=== PATIENT | male | born 1960 | race American Indian/Alaskan Native ===

== ENCOUNTER 2019-07-02 02:33 | Emergency (ER) | payer SELFPAY ==
[2019-07-02] MEDS ORDERED: predniSONE 20 MG TAB PO ONE ×2 (03:25→03:26)
[2019-07-02] MEDS ORDERED: IPRATROPIUM 0.02% NEBU 2.5 ML IH ONE (03:26)
[2019-07-02] MEDS ORDERED: ALBUTEROL 2.5 MG/3 ML NEBU IH ONE (03:26)
--- NOTE | 2019-07-02 03:30 | Emergency Department Report ---
ED Shortness of Breath HPI - General Stated Complaint: SANGEETA Time Seen by Provider: 07/02/19 03:17 Source: patient Mode of arrival: Stretcher Limitations: No Limitations - History of Present Illness Initial Comments: Mr. Medina is a 59-year-old male with history of hypertension COPD polysubstance abuse who presents with shortness of breath since this evening. He was recently seen outside hospital. He does not recall the name of the prescriptions he was given. He has nonproductive cough. Denies fever. Denies chest pain. Severe shortness of breath. Arrived per EMS. Previously followed at [facility]. Recently moved to [facility] to live with granddaughter. Positive history of tobacco abuse, cocaine abuse and marijuana use. He was informed that he may have a bad heart from cocaine use. MD Complaint: shortness of breath, cough -: Gradual, This evening Severity: severe Consistency: constant Improves With: nothing Worsens With: lying flat, exertion Known History Of: COPD Context: recent illness Associated Symptoms: denies other symptoms - Related Data Previous Rx's Medication Instructions Recorded Last Taken Type ALBUTEROL Inhaler (OR & NICU) 2 puff IH QID PRN #8.5 gram 07/02/19 Unknown Rx [ProAir HFA Inhaler] DOXYCYCLINE Hyclate [Vibramycin 100 mg PO Q12HR 7 Days #14 capsule 07/02/19 Unknown Rx CAP] Furosemide [Lasix] 20 mg PO QDAY 14 Days #14 tablet 07/02/19 Unknown Rx predniSONE [Deltasone] 3 tab PO QDAY 3 Days #9 tab 07/02/19 Unknown Rx Allergies Allergy/AdvReac Type Severity Reaction Status Date / Time No Known Allergies Allergy Unverified 07/02/19 03:31 ED Review of Systems ROS: Stated complaint: SANGEETA Other details as noted in HPI Comment: All other systems reviewed and negative Constitutional: denies: fever, malaise Respiratory: cough, shortness of breath, wheezing Cardiovascular: denies: chest pain Gastrointestinal: denies: abdominal pain, nausea, vomiting ED Past Medical Hx - Past Medical History Previous Medical History?: Yes Hx Hypertension: Yes Hx COPD: Yes - Family History Family history: hypertension - Social History Smoking Status: Current Every Day Smoker Substance Use Type: Cocaine, Marijuana - Medications Home Medications: Home Medications Medication Instructions Recorded Confirmed Last Taken Type ALBUTEROL Inhaler (OR & NICU) 2 puff IH QID PRN #8.5 gram 07/02/19 Unknown Rx [ProAir HFA Inhaler] DOXYCYCLINE Hyclate [Vibramycin 100 mg PO Q12HR 7 Days #14 capsule 07/02/19 Unknown Rx CAP] Furosemide [Lasix] 20 mg PO QDAY 14 Days #14 tablet 07/02/19 Unknown Rx predniSONE [Deltasone] 3 tab PO QDAY 3 Days #9 tab 07/02/19 Unknown Rx ED Physical Exam - General General appearance: in no apparent distress, other (initially upon my arrival to the room, Mr. Medina was resting comfortably easily arousable. No work of breathing.) - Head Head exam: Present: atraumatic, normocephalic - Eye Eye exam: Present: normal appearance - ENT ENT exam: Present: mucous membranes moist - Neck Neck exam: Present: normal inspection, full ROM - Respiratory Respiratory exam: Present: normal lung sounds bilaterally. Absent: respiratory distress, wheezes, rales, rhonchi, chest wall tenderness, accessory muscle use, prolonged expiratory - Cardiovascular Cardiovascular Exam: Present: regular rate, normal rhythm, normal heart sounds. Absent: systolic murmur, diastolic murmur, rubs, gallop - GI/Abdominal GI/Abdominal exam: Present: soft, normal bowel sounds. Absent: distended, tenderness, guarding, rebound - Rectal Rectal exam: Present: deferred - Extremities Exam Extremities exam: Present: normal inspection - Neurological Exam Neurological exam: Present: alert, oriented X3 - Psychiatric Psychiatric exam: Present: normal affect, normal mood - Skin Skin exam: Present: warm, dry, intact, normal color. Absent: rash ED Course Vital Signs 07/02/19 07/02/19 07/02/19 03:07 03:15 03:27 Temperature 97.8 F Pulse Rate 94 H 95 H 98 H Respiratory 26 H 17 27 H Rate Blood Pressure 137/94 126/85 O2 Sat by Pulse 96 Oximetry 07/02/19 07/02/19 03:30 03:31 Temperature Pulse Rate 91 H Respiratory 27 H 26 H Rate Blood Pressure 128/86 O2 Sat by Pulse 91 96 Oximetry ED Medical Decision Making - Lab Data Result diagrams: 07/02/19 03:30 07/02/19 03:30 - Radiology Data Radiology results: report reviewed pcxr: cardiomegaly mild vascular congestion - Medical Decision Making Mr. Medina presents with shortness of breath. He appears well on exam. Normal lung exam. I reviewed x-ray images. I do not see significant pulmonary edema. I have prescribed doxycycline, albuterol, prednisone and furosemide. Critical care attestation.: If time is entered above; I have spent that time in minutes in the direct care of this critically ill patient, excluding procedure time. ED Disposition Clinical Impression: COPD with acute exacerbation Disposition: DC-01 TO HOME OR SELFCARE Is pt being admited?: No Does the pt Need Aspirin: No Condition: Stable Instructions: Chronic Obstructive Pulmonary Disease (ED) Prescriptions: predniSONE [Deltasone] 3 tab PO QDAY 3 Days #9 tab Furosemide [Lasix] 20 mg PO QDAY 14 Days #14 tablet ALBUTEROL Inhaler (OR & NICU) [ProAir HFA Inhaler] 2 puff IH QID PRN #8.5 gram PRN Reason: Shortness Of Breath DOXYCYCLINE Hyclate [Vibramycin CAP] 100 mg PO Q12HR 7 Days #14 capsule Referrals: [facility] [Outside] - 3-5 Days
[2019-07-02 03:40] LABS: Basophils % (Auto) 0.7 % (0.0-1.8); Eosinophils # (Auto) 0.2 K/mm3 (0.0-0.4); Eosinophils % (Auto) 2.6 % (0.0-4.3); Hematocrit 36.4 % (35.5-45.6); Hemoglobin 12.2 gm/dl (11.8-15.2); Lymphocytes # (Auto) 1.9 K/mm3 (1.2-5.4); Lymphocytes % (Auto) 32.3 % (13.4-35.0); Mean Corpuscular HGB Conc 34 % (32-34); Mean Corpuscular Volume 93 fl (84-94); Monocytes # (Auto) 0.6 K/mm3 (0.0-0.8); Platelet Count 165 K/mm3 (140-440); Red Blood Count 3.92 M/mm3 (3.65-5.03); Red Cell Distribution Width 14.1 % (13.2-15.2)
--- NOTE | 2019-07-02 03:53 | XRay Report ---
CHEST 1 VIEW, 07/02/2019 3:29 AM CLINICAL INFORMATION/INDICATION: Shortness of breath COMPARISON: None FINDINGS: SUPPORT DEVICES: None. HEART: The cardiac silhouette is moderately enlarged. LUNGS/PLEURA: Pulmonary vascular congestion is noted without evidence of overt pulmonary edema or lar ge pleural effusion. ADDITIONAL FINDINGS: No additional acute findings. IMPRESSION: 1. Cardiac silhouette enlargement with pulmonary vascular congestion. Signer Name: Candy Chowdhury MD Signed: 07/02/2019 3:49 AM Workstation Name: [id number]
[2019-07-02 03:56] LABS: BUN/Creatinine Ratio 20; Blood Urea Nitrogen 24 mg/dL (9-20); Calcium 9.1 mg/dL (8.4-10.2); Hemolysis Index 4
[2019-07-02] MEDS ORDERED: FUROSEMIDE 40 MG/4 ML INJ IV ONE (04:22)
[2019-07-02 05:55] VITALS: BP 121/75
== END 2019-07-02 05:54 | disposition home or self-care (01) ==
LOC: ED 02:33
DX: J44.1 Chronic obstructive pulmonary disease with (acute) exacerbation (principal); I10 Essential (primary) hypertension; F17.200 Nicotine dependence, unspecified, uncomplicated; F12.10 Cannabis abuse, uncomplicated
CPT/HCPCS: 36415; 71045; 80048; 85025; 94644; 96374; 99285; J1940; J7512

== ENCOUNTER 2019-07-06 01:48 | Inpatient (IN) | payer OTHER ==
[2019-07-06] MEDS ORDERED: FUROSEMIDE 40 MG/4 ML INJ IV ONE (01:57)
--- NOTE | 2019-07-06 02:04 | Emergency Department Report ---
ED Shortness of Breath HPI - General Stated Complaint: SANGEETA Time Seen by Provider: 07/06/19 01:57 - History of Present Illness Initial Comments: Patient is 59 years old male with history of COPD, CHF and hypertension. Patient brought to the emergency room via EMS for evaluation of shortness of breath and difficulty breathing since last night. The patient received albuterol, Solu-Medrol and magnesium sulfate 2 g by EMS. Patient is on BiPAP. EMS stated that patient initial oxygen saturation was 89% on room air improved to 96%. Patient denied any fever or chills. Patient also denied any chest pain. MD Complaint: shortness of breath, cough -: Last night Known History Of: COPD, congestive heart failure - Related Data Previous Rx's Medication Instructions Recorded Last Taken Type ALBUTEROL Inhaler (OR & NICU) 2 puff IH QID PRN #8.5 gram 07/02/19 Unknown Rx [ProAir HFA Inhaler] DOXYCYCLINE Hyclate [Vibramycin 100 mg PO Q12HR 7 Days #14 capsule 07/02/19 Unknown Rx CAP] Furosemide [Lasix] 20 mg PO QDAY 14 Days #14 tablet 07/02/19 Unknown Rx predniSONE [Deltasone] 3 tab PO QDAY 3 Days #9 tab 07/02/19 Unknown Rx Allergies Allergy/AdvReac Type Severity Reaction Status Date / Time No Known Allergies Allergy Unverified 07/02/19 03:31 ED Review of Systems ROS: Stated complaint: SANGEETA Other details as noted in HPI Comment: All other systems reviewed and negative Constitutional: denies: chills, fever Respiratory: cough, orthopnea, shortness of breath, SOB with exertion, SOB at rest, wheezing Cardiovascular: denies: chest pain, palpitations Gastrointestinal: denies: abdominal pain, nausea, vomiting, diarrhea, constipation, hematemesis, melena, hematochezia Musculoskeletal: denies: back pain Neurological: denies: headache, weakness, numbness, paresthesias, confusion ED Past Medical Hx - Past Medical History Hx Hypertension: Yes Hx COPD: Yes - Social History Smoking Status: Current Every Day Smoker Substance Use Type: Cocaine, Marijuana - Medications Home Medications: Home Medications Medication Instructions Recorded Confirmed Last Taken Type ALBUTEROL Inhaler (OR & NICU) 2 puff IH QID PRN #8.5 gram 07/02/19 Unknown Rx [ProAir HFA Inhaler] DOXYCYCLINE Hyclate [Vibramycin 100 mg PO Q12HR 7 Days #14 capsule 07/02/19 Unknown Rx CAP] Furosemide [Lasix] 20 mg PO QDAY 14 Days #14 tablet 07/02/19 Unknown Rx predniSONE [Deltasone] 3 tab PO QDAY 3 Days #9 tab 07/02/19 Unknown Rx ED Physical Exam - General General appearance: alert, in distress - Head Head exam: Present: atraumatic, normocephalic, normal inspection - Eye Eye exam: Present: normal appearance - ENT ENT exam: Present: normal exam, normal orophraynx, mucous membranes moist - Neck Neck exam: Present: normal inspection, full ROM. Absent: tenderness, meningismus, lymphadenopathy, thyromegaly - Respiratory Respiratory exam: Present: respiratory distress, wheezes, rales, rhonchi, dec reased breath sounds. Absent: stridor, accessory muscle use, prolonged expiratory - Cardiovascular Cardiovascular Exam: Present: regular rate, normal rhythm, normal heart sounds - GI/Abdominal GI/Abdominal exam: Present: soft, normal bowel sounds. Absent: distended, tenderness, guarding, rebound, rigid, organomegaly, mass, bruit, pulsatile mass, hernia - Extremities Exam Extremities exam: Present: normal inspection, full ROM, normal capillary refill. Absent: pedal edema, calf tenderness - Back Exam Back exam: Present: normal inspection, full ROM. Absent: CVA tenderness (R), CVA tenderness (L) - Neurological Exam Neurological exam: Present: alert, oriented X3, CN II-XII intact, normal gait, reflexes normal - Psychiatric Psychiatric exam: Present: normal mood - Skin Skin exam: Present: warm, intact, normal color ED Course Vital Signs 07/06/19 07/06/19 07/06/19 01:52 02:00 02:01 Temperature 98 F Pulse Rate 83 Respiratory 25 H Rate Blood Pressure 120/82 O2 Sat by Pulse 100 100 Oximetry ED Medical Decision Making - Lab Data Result diagrams: 07/06/19 02:11 07/06/19 02:11 - EKG Data -: EKG Interpreted by Nm EKG shows normal: sinus rhythm Rate: normal - EKG Data Interpretation: no acute changes - Radiology Data Radiology results: report reviewed - Medical Decision Making Patient is 59 years old male with history of COPD, CHF and hypertension. Patient brought to the emergency room via EMS for evaluation of shortness of breath and difficulty breathing since last night. The patient received albuterol, Solu-Medrol and magnesium sulfate 2 g by EMS. Patient is on BiPAP. EMS stated that patient initial oxygen saturation was 89% on room air improved to 96%. Patient denied any fever or chills. Patient also denied any chest pain. Patient found to have a multifocal airspace disease mainly to the right lower lobe consistent with pneumonia. Patient received Zosyn. I discussed the patient with Dr. Lizette Gannon, she agreed to admit the patient to [facility] for further management. Critical Care Time: Yes Critical care time in (mins) excluding proc time.: 30 Critical care attestation.: If time is entered above; I have spent that time in minutes in the direct care of this critically ill patient, excluding procedure time. ED Disposition Clinical Impression: COPD with acute exacerbation, Acute exacerbation of CHF (congestive heart f ailure), Pneumonia Disposition: OP ADMIT IP TO THIS HOSP Is pt being admited?: Yes Condition: Stable Instructions: Chronic Obstructive Pulmonary Disease (ED), Bacterial Pneumonia (ED)
[2019-07-06 02:28] LABS: Basophils % (Auto) 0.6 % (0.0-1.8); Eosinophils # (Auto) 0.1 K/mm3 (0.0-0.4); Eosinophils % (Auto) 2.8 % (0.0-4.3); Hematocrit 38.1 % (35.5-45.6); Hemoglobin 12.5 gm/dl (11.8-15.2); Lymphocytes # (Auto) 2.3 K/mm3 (1.2-5.4); Lymphocytes % (Auto) 44.8 % (13.4-35.0); Mean Corpuscular HGB Conc 33 % (32-34); Mean Corpuscular Volume 93 fl (84-94); Monocytes # (Auto) 0.5 K/mm3 (0.0-0.8); Monocytes % (Auto) 9.1 % (0.0-7.3); Platelet Count 160 K/mm3 (140-440); Red Blood Count 4.08 M/mm3 (3.65-5.03)
--- NOTE | 2019-07-06 02:40 | XRay Report ---
Chest single view INDICATION: Dyspnea IMPRESSION: Multifocal airspace pneumonia especially within the right lower lung Signer Name: Dale Ornelas MD Signed: 07/06/2019 2:35 AM Workstation Name: [employer]
[2019-07-06 02:52] LABS: Alanine Aminotransferase 33 units/L (7-56); Albumin 3.8 g/dL (3.9-5); BUN/Creatinine Ratio 17; Blood Urea Nitrogen 19 mg/dL (9-20); Calcium 8.7 mg/dL (8.4-10.2); Hemolysis Index 3
[2019-07-06] MEDS ORDERED: PIPERACILLIN/TAZOBACTAM 3.375 3.375 GM/50 ML BAG IV ONE (03:06)
[2019-07-06] MEDS ORDERED: ACETAMINOPHEN 325 MG TAB PO PRN (03:19)
[2019-07-06] MEDS ORDERED: ALBUTEROL 2.5 MG/3 ML NEBU IH PRN (03:19)
[2019-07-06] MEDS ORDERED: ONDANSETRON 4 MG/2 ML INJ IV PRN (03:19)
[2019-07-06 03:23] LABS: INR 0.9 (0.87-1.13)
[2019-07-06 03:24] LABS: Partial Thromboplastin Time 26.1 Sec. (24.2-36.6)
--- NOTE | 2019-07-06 03:44 | History and Physical Report ---
<MONET AMAYA - Last Filed: 07/06/19 03:46> History of Present Illness Date of examination: 07/06/19 Date of admission: 07/06/2019 Chief complaint: difficulty in breathing History of present illness: 59-year-old -[place] male who is an ongoing smoker with history of cocaine abuse, marijuana abuse, COPD, hypertension, heart failure who presents to [facility] ED via EMS with complaints of shortness. Patient states that he's been having increased shortness of breath at rest and with activity for the past day. He admits to episodic nonproductive cough, orthopnea and wheezing.Per EMS report pt had saturation of 89% on RA. He was given albuterol, Solu-Medrol and magnesium sulfate 2gm by EMS. Upon arrival to ED pt continued to show s/s of respiratory distress and was placed on BiPap. Of note patient was seen in ED on 07/02/19 with similar complaints at the time he was treated and discharged with by mouth doxycycline, Lasix and albuterol. 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 Pt was receiving care from [facility]. He recently relocated to [facility] and is living with his granddaughter. He denies f ever, chills, or n/v. Past History Past Medical History: COPD, hypertension, other (tobacco abuse, came abuse, marijuana abuse) Past Surgical History: No surgical history Social history: lives with family (granddaughter), smoking (current every day smoker) Family history: no significant family history Medications and Allergies Allergies Allergy/AdvReac Type Severity Reaction Status Date / Time No Known Allergies Allergy Unverified 07/02/19 03:31 Home Medications Medication Instructions Recorded Confirmed Last Taken Type ALBUTEROL Inhaler (OR & NICU) 2 puff IH QID PRN #8.5 gram 07/02/19 07/06/19 Unknown Rx [ProAir HFA Inhaler] Furosemide [Lasix] 20 mg PO QDAY 14 Days #14 tablet 07/02/19 07/06/19 Unknown Rx predniSONE [Deltasone] 3 tab PO QDAY 3 Days #9 tab 07/02/19 07/06/19 Unknown Rx Active Meds: Active Medications Acetaminophen (Tylenol) 650 mg PO Q4H PRN PRN Reason: Pain MILD(1-3)/Fever >100.5/CAREY Albuterol (Proventil) 2.5 mg IH Q3HRT PRN PRN Reason: Shortness Of Breath Albuterol/Ipratropium (Duoneb *Not For Prn Use*) 1 ampul IH Q6HRT [facility] Budesonide (Pulmicort) 0.5 mg IH Q12HRT [facility] Carvedilol (Coreg) 3.125 mg PO BID [facility] Docusate Sodium (Colace) 100 mg PO BID [facility] Guaifenesin (Mucinex Er) 600 mg PO BID [facility] Heparin Sodium (Porcine) (Heparin) 5,000 unit SUB-Q Q12HR [facility] Azithromycin 500 mg/ Sodium (Chloride) 250 mls @ 250 mls/hr IV Q24HR [facility]; Protocol Ceftriaxone Sodium (Rocephin/Ns 1 Gm/50 Ml) 1 gm in 50 mls @ 100 mls/hr IV Q24HR [facility]; Protocol Lisinopril (Zestril) 5 mg PO QDAY [facility] Ondansetron HCl (Zofran) 4 mg IV Q8H PRN PRN Reason: Nausea And Vomiting Sodium Chloride (Sodium Chloride Flush Syringe 10 Ml) 10 ml IV BID [facility]ER[facility] Sodium Chloride (Sodium Chloride Flush Syringe 10 Ml) 10 ml IV PRN PRN PRN Reason: LINE FLUSH Review of Systems All systems: negative Constitutional: chills Cardiovascular: orthopnea, shortness of breath Respiratory: cough, shortness of breath, dyspnea on exertion, wheezing Exam - Physical Exam Narrative exam: General appearance: Present:mild distress, alert and orientedx3, well developed, adult male - EENT Eyes: Present: PERRL, EOM intact ENT: hearing intact, missing teeth - Neck Neck: Present: supple, normal ROM - Respiratory Respiratory effort: Non-labored Respiratory: bilateral: CTA with diminished bases bilaterally - Cardiovascular Heart rate:90 (bpm) Rhythm:SR, specific T wave abnormalities Heart Sounds: Present: S1, S2. - Extremities Extremities: no ischemia, pulses intact - Peripheral Assessment Peripheral Pulses: within normal limits - Abdominal General gastrointestinal: soft, non-tender, normal bowel sounds, - Integumentary Integumentary: Present: warm, dry - Musculoskeletal Musculoskeletal: able to move all extremities -Neurological Neurological: CN II-XII grossly intact - Psychiatric Psychiatric: cooperative - Constitutional Vitals: Temp Pulse Resp BP Pulse Ox 98 F 83 25 H 120/82 100 07/06/19 02:01 07/06/19 02:00 07/06/19 02:00 07/06/19 02:00 07/06/19 02:00 Results - Labs CBC & Chem 7: 07/06/19 02:11 07/06/19 02:11 Labs: Laboratory Last Values WBC 5.1 K/mm3 (4.5-11.0) 07/06/19 02:11 RBC 4.08 M/mm3 (3.65-5.03) 07/06/19 02:11 Hgb 12.5 gm/dl (11.8-15.2) 07/06/19 02:11 Hct 38.1 % (35.5-45.6) 07/06/19 02:11 MCV 93 fl (84-94) 07/06/19 02:11 MCH 31 pg (28-32) 07/06/19 02:11 MCHC 33 % (32-34) 07/06/19 02:11 RDW 14.0 % (13.2-15.2) 07/06/19 02:11 Plt Count 160 K/mm3 (140-440) 07/06/19 02:11 Lymph % (Auto) 44.8 % (13.4-35.0) H 07/06/19 02:11 [place] % (Auto) 9.1 % (0.0-7.3) H 07/06/19 02:11 Eos % (Auto) 2.8 % (0.0-4.3) 07/06/19 02:11 Baso % (Auto) 0.6 % (0.0-1.8) 07/06/19 02:11 Lymph # 2.3 K/mm3 (1.2-5.4) 07/06/19 02:11 [place] # 0.5 K/mm3 (0.0-0.8) 07/06/19 02:11 Eos # 0.1 K/mm3 (0.0-0.4) 07/06/19 02:11 Baso # 0.0 K/mm3 (0.0-0.1) 07/06/19 02:11 Seg Neutrophils % 42.7 % (40.0-70.0) 07/06/19 02:11 Seg Neutrophils # 2.2 K/mm3 (1.8-7.7) 07/06/19 02:11 PT 12.1 Sec. (12.2-14.9) L 07/06/19 02:11 INR 0.90 (0.87-1.13) 07/06/19 02:11 APTT 26.1 Sec. (24.2-36.6) 07/06/19 02:11 Sodium 141 mmol/L (137-145) 07/06/19 02:11 Potassium 4.3 mmol/L (3.6-5.0) 07/06/19 02:11 Chloride 109.3 mmol/L (98-107) H 07/06/19 02:11 Carbon Dioxide 22 mmol/L (22-30) 07/06/19 02:11 Anion Gap 14 mmol/L 07/06/19 02:11 BUN 19 mg/dL (9-20) 07/06/19 02:11 Creatinine 1.1 mg/dL (0.8-1.5) 07/06/19 02:11 Estimated GFR > 60 ml/min 07/06/19 02:11 BUN/Creatinine Ratio 17 % 07/06/19 02:11 Glucose 115 mg/dL (75-100) H 07/06/19 02:11 Calcium 8.7 mg/dL (8.4-10.2) 07/06/19 02:11 Total Bilirubin 0.70 mg/dL (0.1-1.2) 07/06/19 02:11 AST 29 units/L (5-40) 07/06/19 02:11 ALT 33 units/L (7-56) 07/06/19 02:11 Alkaline Phosphatase 104 units/L (35-129) 07/06/19 02:11 Troponin T < 0.010 ng/mL (0.00-0.029) 07/06/19 02:11 NT-Pro-B Natriuret Pep 1812 pg/mL (0-900) H 07/06/19 02:11 Total Protein 6.7 g/dL (6.3-8.2) 07/06/19 02:11 Albumin 3.8 g/dL (3.9-5) L 07/06/19 02:11 Albumin/Globulin Ratio 1.3 % 07/06/19 02:11 - Imaging and Cardiology Imaging and Cardiology: CXR INDICATION: Dyspnea IMPRESSION: Multifocal airspace pneumonia especially within the right lower lung Assessment and Plan Assessment and plan: 59-year-old -[place] male who is an ongoing smoker with history of cocaine abuse, marijuana abuse, COPD, hypertension, heart failure who presents to [facility] ED via EMS with complaints of shortness. Pt was seen in ED on 07/02/19 with similar complaints, and was d/c with by mouth doxycycline, Lasix and albuterol. He was unable to fill prescription due to cost. Will place Case Management consult. Pneumonia -CXR shows Multifocal airspace pneumonia especially within the right lower lung -Blood Cultures pending -GS pending -On IV Abx Acute hypoxic respiratory failure -No Baseline home oxygen requirements -saturation in mid to high 80's on RA -Currently on BiPAP -Monitor saturations -Continue supplemental oxygen wean as tolerated Acute exacerbation COPD -Increased shortness of breath -Scheduled to DuoNebs and Pulmicort, albuterol when necessary -IV systemic steroids -Start Mucinex Hx CHF -Pro BNP elevated at 1812 -Troponin neg x1,will repeat -Per Pt he was told that he has "bad heart" r/t cocaine abuse -Start MASTER and BB HTN -Monitor BP -On MASTER and BB Tobacco abuse -Current every day smoker -Counseled for cessation -Nicotine patch when necessary Hx of Poly Substance Abuse -Cocaine abuse -Marijuana abuse -Counseled for cessation DVT PPX -on Heparin Advance Directives: No VTE prophylaxis?: Chemical Plan of care discussed with patient/family: Yes <ARMANDO ALEXANDER - Last Filed: 07/06/19 04:31> Medications and Allergies Active Meds: Active Medications Acetaminophen (Tylenol) 650 mg PO Q4H PRN PRN Reason: Pain MILD(1-3)/Fever >100.5/CAREY Albuterol (Proventil) 2.5 mg IH Q3HRT PRN PRN Reason: Shortness Of Breath Albuterol/Ipratropium (Duoneb *Not For Prn Use*) 1 ampul IH Q6HRT [facility] Budesonide (Pulmicort) 0.5 mg IH Q12HRT [facility] Carvedilol (Coreg) 3.125 mg PO BID [facility] Docusate Sodium (Colace) 100 mg PO BID [facility] Guaifenesin (Mucinex Er) 600 mg PO BID [facility] Heparin Sodium (Porcine) (Heparin) 5,000 unit SUB-Q Q12HR [facility] Azithromycin 500 mg/ Sodium (Chloride) 250 mls @ 250 mls/hr IV Q24HR [facility]ER[facility]; Protocol Ceftriaxone Sodium (Rocephin/Ns 1 Gm/50 Ml) 1 gm in 50 mls @ 100 mls/hr IV Q24HR [facility]; Protocol Lisinopril (Zestril) 5 mg PO QDAY [facility] Methylprednisolone Sodium Succinate (Solu-Medrol) 60 mg IV Q8HR [facility] Nicotine (Habitrol) 14 mg TD QDAY [facility] Ondansetron HCl (Zofran) 4 mg IV Q8H PRN PRN Reason: Nausea And Vomiting Sodium Chloride (Sodium Chloride Flush Syringe 10 Ml) 10 ml IV BID [facility] Sodium Chloride (Sodium Chloride Flush Syringe 10 Ml) 10 ml IV PRN PRN PRN Reason: LINE FLUSH Exam - Constitutional Vitals: Temp Pulse Resp BP Pulse Ox 98 F 83 25 H 120/82 100 07/06/19 02:01 07/06/19 02:00 07/06/19 02:00 07/06/19 02:00 07/06/19 02:00 Results - Labs CBC & Chem 7: 07/06/19 02:11 07/06/19 02:11 Labs: Laboratory Last Values WBC 5.1 K/mm3 (4.5-11.0) 07/06/19 02:11 RBC 4.08 M/mm3 (3.65-5.03) 07/06/19 02:11 Hgb 12.5 gm/dl (11.8-15.2) 07/06/19 02:11 Hct 38.1 % (35.5-45.6) 07/06/19 02:11 MCV 93 fl (84-94) 07/06/19 02:11 MCH 31 pg (28-32) 07/06/19 02:11 MCHC 33 % (32-34) 07/06/19 02:11 RDW 14.0 % (13.2-15.2) 07/06/19 02:11 Plt Count 160 K/mm3 (140-440) 07/06/19 02:11 Lymph % (Auto) 44.8 % (13.4-35.0) H 07/06/19 02:11 [place] % (Auto) 9.1 % (0.0-7.3) H 07/06/19 02:11 Eos % (Auto) 2.8 % (0.0-4.3) 07/06/19 02:11 Baso % (Auto) 0.6 % (0.0-1.8) 07/06/19 02:11 Lymph # 2.3 K/mm3 (1.2-5.4) 07/06/19 02:11 [place] # 0.5 K/mm3 (0.0-0.8) 07/06/19 02:11 Eos # 0.1 K/mm3 (0.0-0.4) 07/06/19 02:11 Baso # 0.0 K/mm3 (0.0-0.1) 07/06/19 02:11 Seg Neutrophils % 42.7 % (40.0-70.0) 07/06/19 02:11 Seg Neutrophils # 2.2 K/mm3 (1.8-7.7) 07/06/19 02:11 PT 12.1 Sec. (12.2-14.9) L 07/06/19 02:11 INR 0.90 (0.87-1.13) 07/06/19 02:11 APTT 26.1 Sec. (24.2-36.6) 07/06/19 02:11 Sodium 141 mmol/L (137-145) 07/06/19 02:11 Potassium 4.3 mmol/L (3.6-5.0) 07/06/19 02:11 Chloride 109.3 mmol/L (98-107) H 07/06/19 02:11 Carbon Dioxide 22 mmol/L (22-30) 07/06/19 02:11 Anion Gap 14 mmol/L 07/06/19 02:11 BUN 19 mg/dL (9-20) 07/06/19 02:11 Creatinine 1.1 mg/dL (0.8-1.5) 07/06/19 02:11 Estimated GFR > 60 ml/min 07/06/19 02:11 BUN/Creatinine Ratio 17 % 07/06/19 02:11 Glucose 115 mg/dL (75-100) H 07/06/19 02:11 Calcium 8.7 mg/dL (8.4-10.2) 07/06/19 02:11 Total Bilirubin 0.70 mg/dL (0.1-1.2) 07/06/19 02:11 AST 29 units/L (5-40) 07/06/19 02:11 ALT 33 units/L (7-56) 07/06/19 02:11 Alkaline Phosphatase 104 units/L (35-129) 07/06/19 02:11 Troponin T < 0.010 ng/mL (0.00-0.029) 07/06/19 02:11 NT-Pro-B Natriuret Pep 1812 pg/mL (0-900) H 07/06/19 02:11 Total Protein 6.7 g/dL (6.3-8.2) 07/06/19 02:11 Albumin 3.8 g/dL (3.9-5) L 07/06/19 02:11 Albumin/Globulin Ratio 1.3 % 07/06/19 02:11 Assessment and Plan Assessment and plan: 59-year-old man with a history of COPD, CHF family history of COPD, CHF S emergency room with complaints of cough productive of brown yellow phlegm, shortness of breath. He was hospitalized at [facility] Was hospitalized at [facility] last month on the for 4 days for similar complaints. He was unable to fill his antibiotic, also seen here in the ER ON 07/02. [place] with plan as stated above except change antibiotic to Zosyn
[2019-07-06] MEDS ORDERED: FUROSEMIDE 40 MG/4 ML INJ IV SCH (06:00)
[2019-07-06] MEDS: NICOTINE 14 MG/24 HR PATCH TD SCH (09:57)
[2019-07-06] MEDS: DOCUSATE SODIUM 100 MG CAP PO SCH ×2 (09:58→21:50)
[2019-07-06] MEDS: LISINOPRIL 5 MG TAB PO SCH (09:58)
[2019-07-06] MEDS: guaiFENesin ER 600 MG TAB PO SCH ×2 (09:58→21:49)
[2019-07-06] MEDS: carvediloL 3.125 MG TAB PO SCH ×2 (09:58→21:49)
[2019-07-06] MEDS: HEPARIN 5,000 UNIT/1 ML VIAL SUB-Q SCH ×2 (09:58→21:50)
[2019-07-06] MEDS: cefTRIAXone/NS 1 GM/50 ML 1 GM/50 ML BAG IV SCH (09:59)
[2019-07-06] MEDS ORDERED: AZITHROMYCIN 500 MG in SODIUM CHLORIDE 0.9% 250ML 250 ML IV SCH (10:00)
[2019-07-06] MEDS: BUDESONIDE 0.5 MG/2 ML NEBU IH SCH ×2 (10:22→21:01)
[2019-07-06] MEDS: IPRATROPIUM/ALBUTEROL SULFATE 3 ML AMPUL.NEB IH SCH ×3 (10:22→21:01)
[2019-07-06] MEDS: methylPREDNISolone Sod Succinate 40 MG/1 ML INJ IV SCH ×3 (11:00→21:49)
--- NOTE | 2019-07-06 14:48 | Progress Note ---
Assessment and Plan Pneumonia -CXR shows Multifocal airspace pneumonia especially within the right lower lung -Blood Cultures ordered, GS pending -cont On IV Abx Acute hypoxic respiratory failure - due to COPD exacerbation and PNA -No Baseline home oxygen requirements -saturation in mid to high 80's on RA -s/pBiPAP -Continue supplemental oxygen wean as tolerated Acute exacerbation COPD -cont Scheduled to DuoNebs and Pulmicort, albuterol when necessary -IV systemic steroids -Started on Mucinex Hx CHF -Per Pt he was told that he has "bad heart" r/t cocaine abuse -Started on MASTER and BB, no overt sign of heart failure HTN -Monitor BP -On MASTRE and BB Tobacco abuse -Current every day smoker -Counseled for cessation -Nicotine patch when necessary Hx of Poly Substance Abuse -Cocaine abuse -Marijuana abuse -Counseled for cessation DVT PPX -on Heparin Brief History: 59-year-old -Citizen Of [place] male who is an ongoing smoker with history of cocaine abuse, marijuana abuse, COPD, hypertension, heart failure who presents to [facility] ED via EMS with complaints of shortness. Pt was seen in ED on 07/02/19 with similar complaints, and was d/c with by mouth doxycycline, Lasix and albuterol. He was unable to fill prescription due to cost. CXR on admission showed Multifocal airspace pneumonia especially within the right lower lung, admitted for further mx. Subjective Date of service: 07/06/19 Interval history: Patient seen and examined Stares that he is feeling better, his breathing and cough improved denies any chest pain Objective - Constitutional Vitals: Vital Signs - 12hr 07/06/19 07/06/19 07/06/19 03:00 03:30 04:00 Temperature Pulse Rate 93 H 97 H 86 Pulse Rate [ Anterior Throughout] Respiratory 17 20 28 H Rate Respiratory Rate [Anterior Throughout] Blood Pressure 135/95 128/96 129/87 O2 Sat by Pulse 100 100 100 Oximetry 07/06/19 07/06/19 07/06/19 04:30 05:00 05:10 Temperature Pulse Rate 90 87 91 H Pulse Rate [ Anterior Throughout] Respiratory 14 13 19 Rate Respiratory Rate [Anterior Throughout] Blood Pressure 127/87 127/90 127/90 O2 Sat by Pulse 99 100 Oximetry 07/06/19 07/06/19 07/06/19 05:20 05:30 05:40 Temperature Pulse Rate 86 88 90 Pulse Rate [ Anterior Throughout] Respiratory 21 15 14 Rate Respiratory Rate [Anterior Throughout] Blood Pressure 117/88 117/88 O2 Sat by Pulse 100 100 100 Oximetry 07/06/19 07/06/19 07/06/19 05:50 08:03 08:26 Temperature 97.2 F L Pulse Rate 91 H 86 Pulse Rate [ Anterior Throughout] Respiratory 20 18 20 Rate Respiratory Rate [Anterior Throughout] Blood Pressure 119/91 131/89 O2 Sat by Pulse 100 96 97 Oximetry 07/06/19 07/06/19 09:58 10:31 Temperature Pulse Rate 90 Pulse Rate [ 89 Anterior Throughout] Respiratory Rate Respiratory 18 Rate [Anterior Throughout] Blood Pressure 131/89 O2 Sat by Pulse Oximetry General appearance: Present: no acute distress, well-nourished - EENT Eyes: PERRL, EOM intact ENT: hearing intact, clear oral mucosa Ears: bilateral: normal - Neck Neck: supple, normal ROM - Respiratory Respiratory: bilateral: diminished - Cardiovascular Rhythm: regular Heart Sounds: Present: S1 & S2. Absent: gallop, rub Extremities: pulses intact, No edema, normal color, Full ROM - Gastrointestinal General gastrointestinal: Present: soft, non-tender, non-distended, normal bowel sounds - Integumentary Integumentary: clear, warm, dry - Musculoskeletal Musculoskeletal: 1, strength equal bilaterally - Neurologic Neurologic: moves all extremities - Psychiatric Psychiatric: memory intact, appropriate mood/affect, intact judgment & insight - Labs CBC & Chem 7: 07/07/19 03:22 07/07/19 03:22 Labs: Abnormal lab results 07/06/19 07/06/19 07/06/19 Range/Units 02:11 02:11 02:11 Lymph % (Auto) 44.8 H (13.4-35.0) % Caroline % (Auto) 9.1 H (0.0-7.3) % PT 12.1 L (12.2-14.9) Sec. Chloride 109.3 H (98-107) mmol/L Glucose 115 H (75-100) mg/dL NT-Pro-B Natriuret Pep (0-900) pg/mL Albumin 3.8 L (3.9-5) g/dL 07/06/19 Range/Units 02:11 Lymph % (Auto) (13.4-35.0) % Caroline % (Auto) (0.0-7.3) % PT (12.2-14.9) Sec. Chloride (98-107) mmol/L Glucose (75-100) mg/dL NT-Pro-B Natriuret Pep 1812 H (0-900) pg/mL Albumin (3.9-5) g/dL
[2019-07-07] MEDS: IPRATROPIUM/ALBUTEROL SULFATE 3 ML AMPUL.NEB IH SCH ×3 (02:13→13:58)
[2019-07-07 03:48] LABS: Hematocrit 38.9 % (35.5-45.6); Hemoglobin 12.8 gm/dl (11.8-15.2); Mean Corpuscular HGB Conc 33 % (32-34); Mean Corpuscular Volume 93 fl (84-94); Platelet Count 176 K/mm3 (140-440); Red Blood Count 4.17 M/mm3 (3.65-5.03)
[2019-07-07 04:09] LABS: BUN/Creatinine Ratio 19; Blood Urea Nitrogen 21 mg/dL (9-20); Calcium 8.7 mg/dL (8.4-10.2); Hemolysis Index 19
[2019-07-07 04:36] LABS: Band Neutrophils # (Manual) 2.8 K/mm3; Basophils % (Manual) 0 % (0.0-1.8); Eosinophils % (Manual) 0 % (0.0-4.3); RBC Morphology Normal; Total Cells Counted 100
[2019-07-07 04:37] LABS: Large Platelets Rare; Platelet Estimate Consistent w Auto
[2019-07-07] MEDS: methylPREDNISolone Sod Succinate 40 MG/1 ML INJ IV SCH (06:00)
[2019-07-07] MEDS: BUDESONIDE 0.5 MG/2 ML NEBU IH SCH (07:59)
[2019-07-07 08:26] VITALS: BP 118/85
--- NOTE | 2019-07-07 10:42 | Discharge Summary ---
Providers - Providers Date of Admission: 07/06/19 03:19 Date of discharge: 07/07/19 Attending physician: GARFIELD ROBISON 07/06/19 04:05 Consult to Case Management [CONS] Routine Services Needed at Discharge: [place] Notified:: DEVICE REPAIR TECHNICIANlead caregiver physician: [facility] Hospital[facility] Condition: Stable Hospital course: 59-year-old -[place] male who is an ongoing smoker with history of cocaine abuse, marijuana abuse, COPD, hypertension, heart failure who presents to [facility] ED via EMS with complaints of shortness. Pt was seen in ED on 07/02/19 with similar complaints, and was d/c with by mouth doxycycline, Lasix and albuterol. He was unable to fill prescription due to cost. CXR on admission s howed Multifocal airspace pneumonia especially within the right lower lung, admitted for further mx. Discharge diagnosis and mx: Pneumonia with leukocytosis -CXR shows Multifocal airspace pneumonia especially within the right lower lung -Blood Cultures ordered, GS pending -cont On IV Abx Acute hypoxic respiratory failure - due to COPD exacerbation and PNA -No Baseline home oxygen requirements -saturation in mid to high 80's on RA -s/pBiPAP -Continue supplemental oxygen wean as tolerated Acute exacerbation COPD -cont Scheduled to DuoNebs and Pulmicort, albuterol when necessary -IV systemic steroids -Started on Mucinex Hx CHF -Per Pt he was told that he has "bad heart" r/t cocaine abuse -Started on MASTER and BB, no overt sign of heart failure HTN -Monitor BP -On MASTER and BB Tobacco abuse -Current every day smoker -Counseled for cessation -Nicotine patch when necessary Hx of Poly Substance Abuse -Cocaine abuse -Marijuana abuse -Counseled for cessation DVT PPX -on Heparin Time spent for discharge: 34 minutes Exam - Physical Exam Narrative exam: General appearance: Present: no acute distress, well-nourished - EENT Eyes: PERRL, EOM intact ENT: hearing intact, clear oral mucosa Ears: bilateral: normal - Neck Neck: supple, normal ROM - Respiratory Respiratory: bilateral: diminished - Cardiovascular Rhythm: regular Heart Sounds: Present: S1 & S2. Absent: gallop, rub Extremities: pulses intact, No edema, normal color, Full ROM - Gastrointestinal General gastrointestinal: Present: soft, non-tender, non-distended, normal bowel sounds - Integumentary Integumentary: clear, warm, dry - Musculoskeletal Musculoskeletal: 1, strength equal bilaterally - Neurologic Neurologic: moves all extremities - Psychiatric Psychiatric: memory intact, appropriate mood/affect, intact judgment & insight - Constitutional Vitals: Temp Pulse Resp BP Pulse Ox 97.2 F L 93 H 18 118/85 95 07/07/19 08:03 07/07/19 03:45 07/07/19 08:03 07/07/19 08:03 07/07/19 03:45 Plan Activity: advance as tolerated Weight Bearing Status: Weight Bear as Tolerated Diet: low fat, low salt Special Instructions: smoking cessation Follow up with: NONI BATRES MD [Primary Care Provider] - 7 Days JODI MARTI MD [Staff Physician] - 7 Days Prescriptions: carvediloL [Coreg] 3.125 mg PO BID #60 tablet predniSONE [Deltasone] 3 tab PO QDAY 3 Days #9 tab guaiFENesin ER [Mucinex ER] 600 mg PO BID #10 tablet ALBUTEROL Inhaler (OR & NICU) [ProAir HFA Inhaler] 1 puff IH QID PRN #8.5 gram PRN Reason: Shortness Of Breath Lisinopril [Zestril TAB] 5 mg PO QDAY #30 tablet Azithromycin [Zithromax TAB] 500 mg PO QDAY #5 tablet
[2019-07-07] MEDS: cefTRIAXone/NS 1 GM/50 ML 1 GM/50 ML BAG IV SCH (10:50)
[2019-07-07] MEDS: NICOTINE 14 MG/24 HR PATCH TD SCH (10:51)
[2019-07-07] MEDS: guaiFENesin ER 600 MG TAB PO SCH (10:54)
[2019-07-07] MEDS: carvediloL 3.125 MG TAB PO SCH (10:55)
[2019-07-07] MEDS: LISINOPRIL 5 MG TAB PO SCH (10:56)
[2019-07-07] MEDS: DOCUSATE SODIUM 100 MG CAP PO SCH (10:56)
[2019-07-07] MEDS: HEPARIN 5,000 UNIT/1 ML VIAL SUB-Q SCH (10:59)
== END 2019-07-07 15:08 | disposition home or self-care (01) | DRG 193 ==
LOC: ED 01:48 → 4A 03:19
PROVIDERS: ADMIT Internal Medicine; ATTEND Internal Medicine
DX: J18.9 Pneumonia, unspecified organism (principal); J96.01 Acute respiratory failure with hypoxia; J44.1 Chronic obstructive pulmonary disease with (acute) exacerbation; J44.0 Chronic obstructive pulmonary disease with (acute) lower respiratory infection; I50.9 Heart failure, unspecified; I11.0 Hypertensive heart disease with heart failure; F17.210 Nicotine dependence, cigarettes, uncomplicated; F14.10 Cocaine abuse, uncomplicated; F12.10 Cannabis abuse, uncomplicated; Z79.51 Long term (current) use of inhaled steroids; Z79.899 Other long term (current) drug therapy; Z71.6 Tobacco abuse counseling
CPT/HCPCS: 36415; 71045; 80048; 80053; 83880; 84484; 85007; 85025; 85610; 85730; 87040; 87116; 93005; 93010; 94640; G0378; J0456; J0696; J1644; J1940; J2543; J2920; J7050

== ENCOUNTER 2019-07-13 18:25 | Emergency (ER) | payer SELFPAY ==
[2019-07-13] MEDS ORDERED: ASPIRIN 325 MG TAB PO ONE (18:41)
--- NOTE | 2019-07-13 19:13 | Emergency Department Report ---
ED Shortness of Breath HPI - General Chief Complaint: Chest Pain Stated Complaint: DIFFICULTY BREATHING Time Seen by Provider: 07/13/19 19:07 Source: patient, EMS Mode of arrival: Stretcher Limitations: No Limitations - History of Present Illness Initial Comments: 59-year-old male with history of hypertension, CHF, COPD presents to ED with complaint of chest pain and shortness of breath. Patient states his shortness of breath began this morning. States chest pain began sometime this afternoon. States chest pain is sharp and located on the right side of his chest. He states the chest pain is intermittent, but the shortness of breath is constant. Patient states he does not have an inhaler at home to use. Patient was recently discharged from this facility 6 days ago. He was given prescriptions for Mucinex, albuterol inhaler, lisinopril, prednisone, azithromycin, carvedilol, aspirin, pravastatin, and Motrin which he had the bedside. Patient states she is unable to afford any of his medications. Patient is not currently taking any medications. Patient denies cough, fever, nausea or vomiting, leg pain or swelling. Cocaine abuse reported in previous chart. Patient denies any recent drug or tobacco use. No PCP. MD Complaint: shortness of breath -: This morning Severity: moderate Consistency: constant Improves With: nothing Worsens With: nothing Known History Of: COPD, congestive heart failure Associated Symptoms: chest pain Treatments Prior to Arrival: none - Related Data Home Oxygen Therapy: No Previous Rx's Medication Instructions Recorded Last Taken Type ALBUTEROL Inhaler (OR & NICU) 1 puff IH QID PRN #8.5 gram 07/07/19 Unknown Rx [ProAir HFA Inhaler] Azithromycin [Zithromax TAB] 500 mg PO QDAY #5 tablet 07/07/19 Unknown Rx Lisinopril [Zestril TAB] 5 mg PO QDAY #30 tablet 07/07/19 Unknown Rx carvediloL [Coreg] 3.125 mg PO BID #60 tablet 07/07/19 Unknown Rx guaiFENesin ER [Mucinex ER] 600 mg PO BID #10 tablet 07/07/19 Unknown Rx predniSONE [Deltasone] 3 tab PO QDAY 3 Days #9 tab 07/07/19 Unknown Rx Albuterol Sulfate [Proventil Hfa] 2 puff IH Q4HR PRN #1 hfa.aer.ad 07/13/19 Unknown Rx predniSONE [Deltasone] 50 mg PO QDAY #5 tab 07/13/19 Unknown Rx Allergies Allergy/AdvReac Type Severity Reaction Status Date / Time No Known Allergies Allergy Unverified 07/02/19 03:31 ED Review of Systems ROS: Stated complaint: DIFFICULTY BREATHING Other details as noted in HPI Comment: All other systems reviewed and negative Constitutional: denies: chills, fever Respiratory: shortness of breath. denies: cough Cardiovascular: chest pain Gastrointestinal: denies: nausea, vomiting Musculoskeletal: other (denies leg pain or swelling) ED Past Medical Hx - Past Medical History Previous Medical History?: Yes Hx Hypertension: Yes Hx Congestive Heart Failure: Yes Hx Asthma: Yes Hx COPD: Yes - Surgical History Past Surgical History?: No - Social History Smoking Status: Former Smoker Substance Use Type: None - Medications Home Medications: Home Medications Medication Instructions Recorded Confirmed Last Taken Type ALBUTEROL Inhaler (OR & NICU) 1 puff IH QID PRN #8.5 gram 07/07/19 Unknown Rx [ProAir HFA Inhaler] Azithromycin [Zithromax TAB] 500 mg PO QDAY #5 tablet 07/07/19 Unknown Rx Lisinopril [Zestril TAB] 5 mg PO QDAY #30 tablet 07/07/19 Unknown Rx carvediloL [Coreg] 3.125 mg PO BID #60 tablet 07/07/19 Unknown Rx guaiFENesin ER [Mucinex ER] 600 mg PO BID #10 tablet 07/07/19 Unknown Rx predniSONE [Deltasone] 3 tab PO QDAY 3 Days #9 tab 07/07/19 Unknown Rx Albuterol Sulfate [Proventil Hfa] 2 puff IH Q4HR PRN #1 hfa.aer.ad 07/13/19 Unknown Rx predniSONE [Deltasone] 50 mg PO QDAY #5 tab 07/13/19 Unknown Rx ED Physical Exam - General Limitations: No Limitations General appearance: alert, in no apparent distress - Head Head exam: Present: atraumatic, normocephalic - Eye Eye exam: Present: normal appearance, EOMI - ENT ENT exam: Present: mucous membranes moist - Neck Neck exam: Present: normal inspection - Respiratory Respiratory exam: Present: respiratory distress (mild), rales (bilateral bases), other (tachypneic) - Cardiovascular Cardiovascular Exam: Present: regular rate, normal rhythm - GI/Abdominal GI/Abdominal exam: Present: soft. Absent: distended, tenderness - Extremities Exam Extremities exam: Present: normal inspection. Absent: pedal edema, calf tenderness - Neurological Exam Neurological exam: Present: alert, oriented X3 - Psychiatric Psychiatric exam: Present: normal affect, normal mood - Skin Skin exam: Present: warm, dry, intact, normal color ED Course Vital Signs 07/13/19 07/13/19 07/13/19 18:30 19:17 20:51 Temperature 98.5 F Pulse Rate 92 H Pulse Rate [ 95 H Bilateral Throughout] Respiratory 26 H 38 H Rate Respiratory 20 Rate [Bilateral Throughout] Blood Pressure 137/98 Blood Pressure [Left] O2 Sat by Pulse 97 98 Oximetry 07/13/19 21:19 Temperature Pulse Rate 93 H Pulse Rate [ Bilateral Throughout] Respiratory 19 Rate Respiratory Rate [Bilateral Throughout] Blood Pressure Blood Pressure 134/98 [Left] O2 Sat by Pulse 98 Oximetry - Reevaluation(s) Reevaluation #1: 07/13/19 21:32 Pt feeling much better followng neb treatment. States chest pain has resolved. ED Medical Decision Making - Lab Data Result diagrams: 07/13/19 19:08 07/13/19 19:08 - EKG Data -: EKG Interpreted by Md EKG shows normal: sinus rhythm, axis, intervals, QRS complexes Rate: normal - EKG Data Interpretation: nonspecific ST-T wave nelia, LVH - Radiology Data Radiology results: report reviewed, image reviewed - Medical Decision Making 59-year-old male with shortness of breath and right-sided chest pain. Albuterol nebulizer treatment given. Patient feeling much better at this time. Chest x- ray is normal. O2 sats are normal on room air. He reported chest pain was resolved. EKG showed no acute ST changes, troponin normal. Patient also on importance of medication compliance. Patient does not require admission at this time. Prescriptions given. Outpatient follow-up advised. - Differential Diagnosis COPD, CHF, pneumonia Critical care attestation.: If time is entered above; I have spent that time in minutes in the direct care of this critically ill patient, excluding procedure time. ED Disposition Clinical Impression: COPD with acute exacerbation Disposition: DC-01 TO HOME OR SELFCARE Is pt being admited?: No Condition: Stable Instructions: Chronic Obstructive Pulmonary Disease (ED) Prescriptions: predniSONE [Deltasone] 50 mg PO QDAY #5 tab Albuterol Sulfate [Proventil Hfa] 2 puff IH Q4HR PRN #1 hfa.aer.ad PRN Reason: Wheezing Referrals: [facility] [Provider Group] - 3-5 Days ALFREDO ORTIZ MD [Staff Physician] - 3-5 Days JOSE CABRERA MD [Staff Physician] - 3-5 Days Time of Disposition: 21:34
--- NOTE | 2019-07-13 19:16 | XRay Report ---
CHEST 1 VIEW INDICATION / CLINICAL INFORMATION: Chest Pain. COMPARISON: None available. FINDINGS: SUPPORT DEVICES: None. HEART / MEDIASTINUM: Heart size remains slightly enlarged. LUNGS / PLEURA: Interval clearing of the patchy densities in both lungs No pneumothorax. ADDITIONAL FINDINGS: No significant additional findings. IMPRESSION: 1. No acute findings. Signer Name: Jose Fenton MD Signed: 07/13/2019 7:12 PM Workstation Name: [id number]
[2019-07-13] MEDS ORDERED: IPRATROPIUM 0.02% NEBU 2.5 ML IH ONE (19:23)
[2019-07-13] MEDS ORDERED: ALBUTEROL 2.5 MG/3 ML NEBU IH ONE (19:23)
[2019-07-13 19:29] LABS: Basophils % (Auto) 0.6 % (0.0-1.8); Eosinophils # (Auto) 0.1 K/mm3 (0.0-0.4); Hematocrit 39.8 % (35.5-45.6); Hemoglobin 13.6 gm/dl (11.8-15.2); Lymphocytes # (Auto) 2.1 K/mm3 (1.2-5.4); Lymphocytes % (Auto) 30.1 % (13.4-35.0); Mean Corpuscular HGB Conc 34 % (32-34); Mean Corpuscular Volume 93 fl (84-94); Monocytes # (Auto) 0.5 K/mm3 (0.0-0.8); Monocytes % (Auto) 7.4 % (0.0-7.3); Platelet Count 198 K/mm3 (140-440); Red Blood Count 4.27 M/mm3 (3.65-5.03); Red Cell Distribution Width 14.1 % (13.2-15.2)
[2019-07-13] MEDS ORDERED: methylPREDNISolone Sod Succinate 125 MG/2 ML INJ IV ONE (19:29)
[2019-07-13 19:44] LABS: BUN/Creatinine Ratio 17; Blood Urea Nitrogen 19 mg/dL (9-20); Calcium 8.9 mg/dL (8.4-10.2); Hemolysis Index 13
[2019-07-13] MEDS ORDERED: ACETAMINOPHEN 325 MG TAB ONE (20:25)
[2019-07-13] MEDS ORDERED: ACETAMINOPHEN 325 MG/10.15 ML ORAL LIQD UNIT DOSE PO ONE (20:45)
[2019-07-13] MEDS ORDERED: ACETAMINOPHEN 325 MG TAB PO ONE (20:45)
[2019-07-13 21:21] VITALS: BP 134/98
== END 2019-07-13 22:10 | disposition home or self-care (01) ==
LOC: ED 18:25
DX: J44.1 Chronic obstructive pulmonary disease with (acute) exacerbation (principal); I11.0 Hypertensive heart disease with heart failure; I50.9 Heart failure, unspecified
CPT/HCPCS: 36415; 71045; 80048; 83880; 84484; 85025; 93005; 93010; 94640; 96374; 99285; J2930; 94644